=== PATIENT | male | born 1985 | race Caucasian/White ===

== ENCOUNTER 2017-10-28 17:53 | Inpatient (IN) | payer BC ==
[~2017-10-28] VITALS: Ht 165.1 cm; Wt 68.5 kg
[2017-10-28 19:13] LABS: BASOPHIL % 1.7 % (0-2); PLATELET COUNT 229 x10^3mcL (130-400); RED CELL DISTRIBUTION WIDTH 13.5 % (11.5-14.5)
[2017-10-28 19:21] LABS: CALCIUM 9.5 mg/dL (8.5-10.1); CARBON DIOXIDE 27.6 mmol/L (21-32); CHLORIDE SERUM 102 mmol/L (98-107); GFR1 > 60 mL/min; GLUCOSE SERUM 139 mg/dL (74-106); POTASSIUM SERUM 4.2 mmol/L (3.5-5.1); SODIUM SERUM 142 mmol/L (136-145)
[2017-10-28 19:26] LABS: ALBUMIN 4.3 g/dL (3.4-5.0); ALKALINE PHOSPHATASE 48 U/L (46-116); ALT/SGPT 19 U/L (16-63); AMYLASE 64 U/L (25-115); AST/SGOT 19 U/L (15-37); BILIRUBIN TOTAL 0.62 mg/dL (0.20-1.00); LIPASE 127 IU/L (73-393); TOTAL PROTEIN, SERUM 7.8 g/dL (6.4-8.2)
[2017-10-28 20:48] LABS: UA SPECIFIC GRAVITY >=1.030 (1.005-1.035); microscopic required? YES; urine erythrocyte TRACE (NEGATIVE)
[2017-10-29] VITALS (7 sets, daily range): BP systolic 100–127; BP diastolic 66–78; Ht 165.1 cm; Wt 68.5 kg
[2017-10-29 01:11] LABS: PHOSPHOROUS 3.6 mg/dL (2.5-4.9)
[2017-10-29 01:11] LABS: AMPHETAMINE QUAL UR NONE DETECTED (NEG <=1000)
[2017-10-29 01:18] LABS: CHOLESTEROL/HDL RATIO 2.2; FREE T4 1.13 ng/dL (0.76-1.46); FREE THYROXINE INDEX 2.9 ug/dL (1.4-4.5); T4(THYROXINE) 8.6 ug/dL (4.7-13.3)
[2017-10-29 02:19] LABS: T3 TOTAL 0.92 ng/mL
[2017-10-30 06:21] VITALS: BP 103/50
[2017-10-30 06:45] LABS: BASOPHIL % 0.6 % (0-2); PLATELET COUNT 208 x10^3mcL (130-400); RED CELL DISTRIBUTION WIDTH 13.4 % (11.5-14.5)
[2017-10-30 06:56] LABS: CALCIUM 8.2 mg/dL (8.5-10.1); CARBON DIOXIDE 28.9 mmol/L (21-32); CHLORIDE SERUM 106 mmol/L (98-107); CREATININE SERUM 0.9 mg/dL (0.7-1.3); GFR1 > 60 mL/min; GLUCOSE SERUM 96 mg/dL (74-106); PHOSPHOROUS 2.6 mg/dL (2.5-4.9); POTASSIUM SERUM 3.9 mmol/L (3.5-5.1); SODIUM SERUM 141 mmol/L (136-145)
[2017-10-30] MEDS ORDERED: TYLENOL WITH CO1 TA2 PO (09:36)
[2017-10-30 10:05] VITALS: BP 110/67
[2017-10-30 13:51] VITALS: BP 110/67
== END 2017-10-30 15:25 | disposition home or self-care (01) | DRG 343 ==
LOC: ED 17:53 → DU 22:56 → MU 10-29 09:36
PROVIDERS: Emergency Medicine; Family Medicine
PROC: 0DTJ4ZZ Resection of Appendix, Percutaneous Endoscopic Approach (ICD-10-PCS; principal; 2017-10-30)
DX: K35.80 Unspecified acute appendicitis (principal); E86.0 Dehydration; R82.4 Acetonuria; E78.5 Hyperlipidemia, unspecified; Z72.89 Other problems related to lifestyle
CPT/HCPCS: 83880; 84439; 94150; J0690; J1885; J1956; J2250; J2270; J2405; J2765; J3010; J3490; J7030; Q0092